=== PATIENT | female | born 1975 | race Caucasian/White ===

== ENCOUNTER → 2020-03-17 | Outpatient (CLI) | payer OTHER ==
[2020-03-17 17:38] LABS: BASOPHILS ABSOLUTE AUTO 0.07 K/mm3 (0.00-0.23); BASOPHILS PERCENT AUTO 1 % (0-2); EOSINOPHILS ABSOLUTE AUTO 0.08 K/mm3 (0.00-0.68); EOSINOPHILS PERCENT AUTO 1 % (0-6); Hematocrit 28.6 % (33.0-51.0); Hemoglobin 8.4 g/dL (11.5-16.0); IMMATURE GRAN ABSOLUTE AUTO 0.01 K/mm3 (0.00-0.10); IMMATURE GRAN PERCENT AUTO 0 % (0-1); LYMPHOCYTES ABSOLUTE AUTO 1.69 K/mm3 (0.84-5.20); LYMPHOCYTES PERCENT AUTO 26 % (21-46); MONOCYTES ABSOLUTE AUTO 0.36 K/mm3 (0.16-1.47); MONOCYTES PERCENT AUTO 5 % (4-13); Mean Corpuscular HGB 19.5 pg (26.0-34.0); Mean Corpuscular HGB Conc 29.4 g/dL (31.5-36.5); Mean Corpuscular Volume 67 fL (80-100); Mean Platelet Volume 9.1 fL (9.1-12.4); NEUTROPHILS PERCENT AUTO 67 % (41-73); Platelet Count 552 K/mm3 (150-400); RDW Standard Deviation 46.6 fL (35.1-46.3); White Blood Cell Count 6.61 K/mm3 (4.00-11.30)
[2020-03-17 18:01] LABS: Albumin, Blood 3.2 g/dL (3.4-5.0); Albumin/Globulin Ratio 0.8 (0.8-1.8); Bilirubin, Total 0.1 mg/dL (0.1-1.0); Calcium, Blood 9.1 mg/dL (8.5-10.1); Creatinine, Blood 1.16 mg/dL (0.40-1.00); Potassium, Blood 3.8 mmol/L (3.5-5.5); Thyroid Stimulating Hormone 1.537 uIU/mL (0.360-4.800); Total Protein, Blood 7.2 g/dL (6.4-8.2)
[2020-03-17 20:24] LABS: Percent Saturation 3.3 % (15.0-50.0)
== END | disposition home or self-care (01) ==
LOC: LAB SHORT 17:30 → LAB EV 17:30
PROVIDERS: Chiropractor
DX: R53.83 Other fatigue (principal); D50.9 Iron deficiency anemia, unspecified
CPT/HCPCS: 80053; 82728; 83540; 83550; 84443; 85025

== ENCOUNTER 2021-09-06 13:43 | Emergency (ER) | payer OTHER ==
[~2021-09-06] VITALS: Ht 165.1 cm; Wt 63.5 kg
[2021-09-06] MEDS ORDERED: IBUP800 PO (18:24)
[2021-09-06] MEDS ORDERED: HYDR1TAB94 PO (18:24)
== END 2021-09-06 18:50 | disposition home or self-care (01) ==
LOC: ER 13:43
DX: S82.252A Displaced comminuted fracture of shaft of left tibia, initial encounter for closed fracture (principal); S82.452A Displaced comminuted fracture of shaft of left fibula, initial encounter for closed fracture; S82.852A Displaced trimalleolar fracture of left lower leg, initial encounter for closed fracture; T23.072A Burn of unspecified degree of left wrist, initial encounter; S09.90XA Unspecified injury of head, initial encounter; F17.210 Nicotine dependence, cigarettes, uncomplicated; W22.11XA Striking against or struck by driver side automobile airbag, initial encounter; V49.40XA Driver injured in collision with unspecified motor vehicles in traffic accident, initial encounter; Y92.9 Unspecified place or not applicable
CPT/HCPCS: 73562-LT; 73600; 73700; A9270; J1170; J1885; J2270; J2405; J7030

== ENCOUNTER 2024-02-17 01:20 | Day surgery (SDC) | payer OTHER ==
[~2024-02-17 01:20] MED LIST: HYDR1TAB94 PO; IBUP800 PO; OXAYDO5 M4 PO
[2024-02-17] MEDS ORDERED: Sod Ferric Gluc Complx/Sucrose 125 MG in NS 100 ML IV SCH (06:00)
[2024-02-17] MEDS ORDERED: BUPR150ER PO (14:53)
[2024-02-17 14:55] VITALS: BP 137/86
== END 2024-02-17 16:08 | disposition home or self-care (01) ==
LOC: ATC 01:20
DX: D50.9 Iron deficiency anemia, unspecified (principal); F17.210 Nicotine dependence, cigarettes, uncomplicated; Z79.899 Other long term (current) drug therapy
CPT/HCPCS: 96365; J2916

== ENCOUNTER 2024-03-02 02:09 | Day surgery (SDC) | payer OTHER ==
[~2024-03-02 02:09] MED LIST changes: +BUPR150ER PO; +Sod Ferric Gluc Complx/Sucrose 125 MG in NS 100 ML IV SCH
[2024-03-02] MEDS ORDERED: DEPO-PROVE150 MG/1 M IM (14:36)
[2024-03-02 14:37] VITALS: BP 132/75
[2024-03-02] MEDS ORDERED: NOVAFERRUM125 MG/51 (14:37)
== END 2024-03-02 15:55 | disposition home or self-care (01) ==
LOC: ATC 02:09
DX: D50.9 Iron deficiency anemia, unspecified (principal)
CPT/HCPCS: 96365; J2916